=== PATIENT | male | born 1960 | race Caucasian/White ===

== ENCOUNTER 2017-07-16 05:24 | Emergency (ER) | payer OTHER ==
[~2017-07-16] VITALS: Ht 167.6 cm; Wt 93.3 kg
[~2017-07-16 05:24] MED LIST: HYDR-3245 PO; LACT20SO13 NG; OMEP20CA9 PO; PANT20TA2 PO; PROP80CA PO; RIFA550T4 PO; SPIR100T PO; SUCR100P
[2017-07-16] MEDS ORDERED: PRAV20TA2 PO (05:52)
[2017-07-16] MEDS ORDERED: FERR-36 PO (05:52)
[2017-07-16] MEDS ORDERED: ISON300T4 PO (05:52)
[2017-07-16] MEDS ORDERED: PYRI25TA3 PO (05:52)
[2017-07-16] MEDS ORDERED: ONDANSETRON 2MG/ML, 2ML IVPush ONE (06:00)
[2017-07-16] MEDS ORDERED: HYDROmorphone 1 MG/ML, 1ML IVPush PRN (06:00)
[2017-07-16] MEDS ORDERED: SODIUM CHLORIDE FLUSH 10ML SYR IVF ONE (06:00)
[2017-07-16] MEDS ORDERED: HYDROmorphone 1 MG/ML, 1ML ONE (06:06)
[2017-07-16] MEDS ORDERED: ONDANSETRON 2MG/ML, 2ML ONE (06:06)
[2017-07-16 07:14] LABS: ASPARTATE AMINO TRANSFERASE 40 U/L (15-37); BLOOD UREA NITROGEN 13 mg/dL (7-18)
[2017-07-16 07:23] LABS: HEMATOCRIT 40.6 % (39.2-51.8); WHITE BLOOD COUNT 5.6 x10^3/uL (3.4-10)
[2017-07-16 09:20] VITALS: BP 134/76
== END 2017-07-16 09:22 | disposition home or self-care (01) ==
LOC: ED 06:35
DX: K74.60 Unspecified cirrhosis of liver (principal)
CPT/HCPCS: 36415; 74022; 76700; 80053; 83690; 85025; 85610; 85730; 93005; 96374; 96375; 99285; J1170; J2405

== ENCOUNTER → 2018-06-15 | Outpatient (CLI) | payer OTHER ==
[~2018-06-15] MED LIST changes: +FERR-51 PO; +GADOBUTROL 10 MMOL/10 ML VIAL ONE; +ISON300T4 PO; +PRAV20TA2 PO; +PYRI25TA3 PO
== END | disposition home or self-care (01) ==
LOC: CFH 07:47
PROVIDERS: ATTEND Internal Medicine Gastroenterology
DX: R16.1 Splenomegaly, not elsewhere classified (principal); K74.60 Unspecified cirrhosis of liver; K43.9 Ventral hernia without obstruction or gangrene; I85.00 Esophageal varices without bleeding; D68.9 Coagulation defect, unspecified; D50.0 Iron deficiency anemia secondary to blood loss (chronic); M72.2 Plantar fascial fibromatosis
CPT/HCPCS: 74183; A9585

== ENCOUNTER → 2018-12-22 | Outpatient (CLI) | payer OTHER ==
[~2018-12-22] MED LIST changes: +ISON300T10 PO; -ISON300T4 PO
== END | disposition home or self-care (01) ==
LOC: CFH 09:14
PROVIDERS: ATTEND Internal Medicine Gastroenterology
DX: K43.9 Ventral hernia without obstruction or gangrene (principal); N28.1 Cyst of kidney, acquired; R16.1 Splenomegaly, not elsewhere classified; I85.00 Esophageal varices without bleeding; D68.9 Coagulation defect, unspecified; D50.0 Iron deficiency anemia secondary to blood loss (chronic); B18.2 Chronic viral hepatitis C; K31.89 Other diseases of stomach and duodenum; K31.7 Polyp of stomach and duodenum
CPT/HCPCS: 74183; A9585

== ENCOUNTER 2020-02-19 15:22 | Emergency (ER) | payer OTHER ==
[~2020-02-19] VITALS: Ht 160 cm; Wt 85.4 kg
[~2020-02-19 15:22] MED LIST changes: +CARV3.1212 PO; +CIPR250T27 PO; -GADOBUTROL 10 MMOL/10 ML VIAL ONE; +TRAM50TA2 PO
--- NOTE | 2020-02-19 16:48 | NUR ---
PT OK FOR D/C, VERBALIZED UNDERSTANDING OF D/C INSTRUCTIONS. PT WITH STEADY GAIT UPON D/C.
[2020-02-19 16:51] VITALS: BP 139/87
== END 2020-02-19 16:53 | disposition home or self-care (01) ==
LOC: ED 16:15
DX: K08.89 Other specified disorders of teeth and supporting structures (principal); Z20.828 Contact with and (suspected) exposure to other viral communicable diseases; R11.2 Nausea with vomiting, unspecified
CPT/HCPCS: 99283; U0001

== ENCOUNTER 2021-01-08 09:44 | Observation (INO) | payer OTHER ==
[~2021-01-08] VITALS: Ht 154.9 cm; Wt 82.0 kg
[~2021-01-08 09:44] MED LIST changes: -HYDR-3245 PO; +HYDR1TAB53 PO
--- NOTE | 2021-01-08 10:04 | NUR ---
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
[2021-01-08] MEDS ORDERED: SIMV10TA18 PO (10:13)
--- NOTE | 2021-01-08 10:28 | NUR ---
pt w intermittent sharp epigastric pain, also over [place] surgical scar from 2016. bs wnl last bm today, norm. last oral intake yest. surgical scar appears somewhat swollen over epigastrum. sml amt vomiting x2 yest. pain x5 days. slight body jaundice. at bedside. call gray. as
[2021-01-08] MEDS ORDERED: ONDANSETRON 2MG/ML, 2ML ONE (10:37)
[2021-01-08] MEDS ORDERED: HYDROmorphone 1 MG/ML, 1ML INJ ONE (10:37)
[2021-01-08 10:55] LABS: BASOPHILS % (AUTO) 1 % (0-1); EOSINOPHILS % (AUTO) 4 % (1-7); LYMPHOCYTES % (AUTO) 18 % (22-44); MEAN CORPUSCULAR HEMOGLOBIN 20.5 pg (27.5-34.5); MEAN CORPUSCULAR HGB CONC 30.6 g/dL (33.2-36.2); MEAN PLATELET VOLUME 8.8 fL (7.4-10.4); MONOCYTES % (AUTO) 10 % (2-9); NEUTROPHILS % (AUTO) 67 % (42-75); RED BLOOD COUNT 4.43 x10^6/uL (4.38-5.82)
[2021-01-08] MEDS ORDERED: HYDROmorphone 1 MG/ML, 1ML INJ IV ONE (11:00)
[2021-01-08] MEDS ORDERED: ONDANSETRON 2MG/ML, 2ML IVPush ONE (11:00)
[2021-01-08 11:08] LABS: ALANINE AMINOTRANSFERASE 34 U/L (12-78); ALBUMIN 2.8 g/dL (3.4-5.0); ANION GAP 5 mmol/L (5-15); CALCIUM 7.8 mg/dL (8.5-10.1); CHLORIDE 108 mmol/L (98-107); CREATININE 0.84 mg/dL (0.7-1.3)
[2021-01-08 11:11] LABS: ALKALINE PHOSPHATASE 165 U/L (45-117); BILIRUBIN,TOTAL 1.4 mg/dL (0.2-1.0); TOTAL PROTEIN 6.1 g/dL (6.4-8.2)
[2021-01-08 11:16] LABS: MD MORPH REVIEW ONLY; PLATELET COUNT 31 x10^3/uL (130-400)
[2021-01-08 11:17] LABS: ANISOCYTOSIS 1+; HYPOCHROMIA 1+; MICROCYTOSIS 1+; OVALOCYTES 1+; POLYCHROMASIA 1+
--- NOTE | 2021-01-08 11:17 | NUR ---
TASK RN: RECEIVED CRITICAL VALUE CALL FOR PLT 31. NOTIFIED. PRIMARY RN UPDATED.
[2021-01-08 11:18] LABS: <PLATELET ESTIMATE> DECREASED; LARGE PLATELETS 1+
--- NOTE | 2021-01-08 11:31 | NUR ---
pt to ct. as
[2021-01-08] MEDS ORDERED: OMNIPAQUE 350 MG/ML, 100ML BOTTLE ONE (11:51)
[2021-01-08] MEDS ORDERED: FENTANYL PF 100 MCG/2ML ONE (11:52)
[2021-01-08] MEDS ORDERED: FENTANYL PF 100 MCG/2ML IV ONE (12:00)
--- NOTE | 2021-01-08 12:01 | NUR ---
remedicated for pain, vss, awaiting ct. as
--- NOTE | 2021-01-08 13:46 | NUR ---
TASK RN: PT OOB AND AMBULATED TO BATHROOM. RTD TO ROOM W/O INCIDENT. PT PANTS AND SHOES REMOVED. WARM BLANKET AND PILLOW PROVIDED. CALL LIGHT W/I REACH
--- NOTE | 2021-01-08 14:13 | NUR ---
report to oswald clemons. as
[2021-01-08] MEDS ORDERED: LABETALOL 5MG/ML, 20ML IVPush PRN (16:00)
[2021-01-08] MEDS ORDERED: ONDANSETRON ODT 4 MG PO PRN (16:00)
[2021-01-08] MEDS ORDERED: ONDANSETRON 2MG/ML, 2ML IVPush PRN (16:00)
[2021-01-08] MEDS: morphine SULFATE 10 MG/ML, 1ML IVPush PRN (16:23)
[2021-01-08] MEDS: LACTATED RINGERS 1,000 ML IV SCH (16:44)
[2021-01-08] MEDS: CARVEDILOL 3.125 MG TABLET PO SCH (16:44)
[2021-01-08 16:48] VITALS: BP 150/73
[2021-01-08 18:17] VITALS: BP 133/72
[2021-01-08] MEDS ORDERED: SIMVASTATIN 10 MG TABLET PO SCH (21:00)
[2021-01-08] MEDS: RIFAXIMIN 550 MG TABLET PO SCH (22:12)
[2021-01-08] MEDS: PANTOPRAZOLE 40MG TABLET PO SCH (22:12)
[2021-01-09 00:34] VITALS: BP 107/63
[2021-01-09] MEDS: morphine SULFATE 10 MG/ML, 1ML IVPush PRN (00:43)
[2021-01-09 05:27] LABS: BASOPHILS % (AUTO) 1 % (0-1); EOSINOPHILS % (AUTO) 7 % (1-7); LYMPHOCYTES % (AUTO) 22 % (22-44); MEAN CORPUSCULAR HEMOGLOBIN 20.6 pg (27.5-34.5); MEAN CORPUSCULAR HGB CONC 30.8 g/dL (33.2-36.2); MEAN PLATELET VOLUME 8.9 fL (7.4-10.4); MONOCYTES % (AUTO) 9 % (2-9); NEUTROPHILS % (AUTO) 61 % (42-75); RED BLOOD COUNT 4.31 x10^6/uL (4.38-5.82); RED CELL DISTRIBUTION WIDTH 20.3 % (9.4-14.8)
[2021-01-09] MEDS: LACTATED RINGERS 1,000 ML IV SCH (05:31)
[2021-01-09] MEDS: CARVEDILOL 3.125 MG TABLET PO SCH ×2 (05:31→17:30)
[2021-01-09 05:35] LABS: ANION GAP 4 mmol/L (5-15); CALCIUM 7.6 mg/dL (8.5-10.1); CHLORIDE 107 mmol/L (98-107)
[2021-01-09 05:36] LABS: CREATININE 0.76 mg/dL (0.7-1.3)
[2021-01-09 06:08] LABS: MD MORPH REVIEW ONLY; PLATELET COUNT 29 x10^3/uL (130-400)
[2021-01-09 06:09] LABS: <PLATELET ESTIMATE> DECREASED; ANISOCYTOSIS 1+; HYPOCHROMIA 1+; LARGE PLATELETS 1+; OVALOCYTES 1+; POLYCHROMASIA 1+
[2021-01-09 06:10] LABS: MICROCYTOSIS 2+
[2021-01-09 07:52] VITALS: BP 110/71
[2021-01-09] MEDS ORDERED: FERROUS SULFATE 325 MG TABLET PO SCH (09:00)
[2021-01-09] MEDS ORDERED: SPIRONOLACTONE 100 MG TABLET PO SCH (09:00)
[2021-01-09] MEDS ORDERED: PYRIDOXINE 25MG TABLET PO SCH (09:00)
[2021-01-09] MEDS ORDERED: MAGNESIUM SULFATE PMX 2GM/50ML 50 ML IV ONE (09:00)
[2021-01-09] MEDS: RIFAXIMIN 550 MG TABLET PO SCH (09:04)
[2021-01-09] MEDS: PANTOPRAZOLE 40MG TABLET PO SCH (09:04)
[2021-01-09 14:01] VITALS: BP 119/70
[2021-01-09 17:26] VITALS: BP 116/73
== END 2021-01-09 18:22 | disposition home or self-care (01) ==
LOC: ED 10:24 → INTOOBSV 13:34 → EDIP 13:34 → 4NW 14:39
PROVIDERS: ADMIT Family Medicine; ATTEND Internal Medicine
DX: K56.600 Partial intestinal obstruction, unspecified as to cause (principal); K43.0 Incisional hernia with obstruction, without gangrene; K74.60 Unspecified cirrhosis of liver; I10 Essential (primary) hypertension; C22.0 Liver cell carcinoma; D61.818 Other pancytopenia; D69.6 Thrombocytopenia, unspecified; D72.819 Decreased white blood cell count, unspecified; D64.9 Anemia, unspecified; I81 Portal vein thrombosis; B18.2 Chronic viral hepatitis C; K72.90 Hepatic failure, unspecified without coma; K76.6 Portal hypertension; Z79.899 Other long term (current) drug therapy; Z90.49 Acquired absence of other specified parts of digestive tract; Z72.89 Other problems related to lifestyle; Z85.05 Personal history of malignant neoplasm of liver
CPT/HCPCS: 36415; 74021; 74177; 80048; 80053; 83690; 83735; 85025; 96361; 96365; 96366; 96375; 96376; 99285; G0378; J1170; J2270; J2405; J3010; J3475; J7120; Q9967; 96374